=== PATIENT | male | born 1960 | race Caucasian/White ===

== ENCOUNTER 2017-05-24 18:48 | Observation (INO) | payer BC ==
[~2017-05-24] VITALS: Ht 182.9 cm; Wt 91.0 kg
[~2017-05-24 18:48] MED LIST: DICY1TAB26 PO; LORT5TAB PO; PHEN12.5 PO; PREV30CA36 PO; Z.0.NO CURRENT MEDS
[2017-05-24 18:56] VITALS: BP 153/79; PULSE 84; RESP 16; TEMP 98.4; O2SAT 99
[2017-05-24 19:04] VITALS: BP 167/80; PULSE 84; RESP 16; O2SAT 100
[2017-05-24 19:12] LABS: AUTOMATED NEUTROPHIL # 4.9 TH/MM3 (1.8-7.7); BASOPHIL # 0.1 TH/MM3 (0-0.2); BASOPHIL % 0.7 % (0.0-2.0); EOSINOPHIL # 0.1 TH/MM3 (0-0.4); EOSINOPHIL % 1.2 % (0.0-4.0); HEMATOCRIT 34.7 % (39.0-51.0); LYMPH % 29.1 % (9.0-44.0); LYMPHOCYTE # 2.3 TH/MM3 (1.0-4.8); MEAN CELL VOLUME 98.3 FL (80.0-100.0); MEAN CORPUSCULAR HEMOGLOBIN 35.6 PG (27.0-34.0); MONO % 6.3 % (0.0-8.0); NEUT % 62.7 % (16.0-70.0); PLATELET COUNT 210 TH/MM3 (150-450); RED BLOOD COUNT 3.53 MIL/MM3 (4.50-5.90); RED CELL DISTRIBUTION WIDTH 13.8 % (11.6-17.2); WHITE BLOOD COUNT 7.8 TH/MM3 (4.0-11.0)
[2017-05-24] MEDS ORDERED: NITROGLYCERIN 0.4 MG SL 25 TABS/BTL SL ONE (19:15)
--- NOTE | 2017-05-24 19:16 | PD ---
HPI Chief Complaint: Chest Pain Time Seen by Provider: 19:14 Travel History International Travel<30 days: No Contact w/Intl Traveler<30days: No Traveled to known affect area: No History of Present Illness HPI 56-year-old male presents to the emergency department by EMS transportation from home where he experienced onset of retrosternal chest burning radiating to his left shoulder. Patient experienced some associated dizziness and shortness of breath. Patient has history of hypertension. Patient denies diabetes. Patient states he drinks alcohol and smokes socially. Patient states he has had a stress test approximate 5 years ago that was done preoperatively as a routine evaluation but has never been evaluated for chest pain. Denies any ripping tearing pain and no mid scapular pain. Patient denies any referred pain to the neck or jaw. Patient states that onset pain was 9/10 in intensity currently is 5/10 in intensity. Patient received 162 mg of aspirin prior to arrival as well as 2 subungual nitroglycerin 500 cc bolus of normal saline and 2 mg of morphine. Patient has history of previous neck fracture with residual effect to the right upper extremity with tremor and some weakness as well as bilateral lower extremity weakness he states 80% function and is able to ambulate independently. Patient's had no fall or injury. Patient's had no abdominal pain. Patient's had no nausea vomiting or diarrhea. Patient's had no fever. No respiratory illness symptoms. Patient has no family history of cardiac disease. [facility] Past Medical History Narrative Medical Neck fracture 1985 with residual weakness right upper extremity and bilateral lower extremities; hypertension dyslipidemia; tobacco use alcohol use; any history negative for CAD; nursing notes reviewed Cancer: Yes (PROSTATE) Cardiovascular Problems: Yes (HTN) Diminished Hearing: No Hypertension: Yes Musculoskeletal: Yes (neck injury 1985) Tetanus Vaccination: Unknown Influenza Vaccination: No Past Surgical History Neurologic Surgery: Yes (MULTIPLE CERVICAL SURGERIES) Other Surgery: Yes (PROSTATE REMOVED) Social History Alcohol Use: Yes (socially) Tobacco Use: Yes (SOCIAL) Substance Use: No Allergies-Medications (Allergen,Severity, Reaction): Coded Allergies: Sulfa (Sulfonamide Antibiotics) (Verified Allergy, Severe, Rash, 05/24/17) Reported Meds & Prescriptions Reported Meds & Active Scripts Active Lortab 5/500 (Acetaminophen/Hydrocodone Bitart) 5 Mg/500 Mg Tab 1 Tab PO Q4- 6HPRN FOR PAIN Bentyl (Dicyclomine HCl) 20 Mg Tab 20 Mg PO Q8HPRN Phenergan (Promethazine HCl) 12.5 Mg Tab 12.5 Mg PO Q6HPRN FOR NAUSEA Prevacid (Lansoprazole) 30 Mg Capcr 30 Mg PO DAILY Reported No Current Meds (Miscellaneous Medication) Misc Review of Systems Except as stated in HPI: all other systems reviewed are Neg Physical Exam Narrative GENERAL: Well-developed well-nourished male in no acute distress no respiratory distress. SKIN: Warm and dry. HEAD: Normocephalic. EYES: No scleral icterus. No injection or drainage. NECK: Supple, trachea midline. No JVD or lymphadenopathy. CARDIOVASCULAR: Regular rate and rhythm without murmurs, gallops, or rubs. RESPIRATORY: Breath sounds equal bilaterally. No accessory muscle use. GASTROINTESTINAL: Abdomen soft, non-tender, nondistended. MUSCULOSKELETAL: No cyanosis, or edema. BACK: Nontender without obvious deformity. No CVA tenderness. Data Data Last Documented VS Vital Signs Date Time Temp Pulse Resp B/P (MAP) Pulse Ox O2 Delivery O2 Flow Rate FiO2 05/24/17 19:04 84 16 167/80 (109) 100 Nasal Cannula 2.00 05/24/17 18:56 98.4 Orders Orders Electrocardiogram (05/24/17 19:00) Complete Blood Count With Diff (05/24/17 19:00) Basic Metabolic Panel (Bmp) (05/24/17 19:00) Ckmb (Isoenzyme) Profile (05/24/17 19:00) Troponin I (05/24/17 19:00) Chest, Single Ap (05/24/17 19:00) Iv Access Insert/Monitor (05/24/17 19:00) Ecg Monitoring (05/24/17 19:00) Oxygen Administration (05/24/17 19:00) Oximetry (05/24/17 19:00) Nitroglycerin Sl (Nitrostat Sl) (05/24/17 19:15) Nitroglycerin 2% Oint (Nitroglycerin 2% (05/24/17 19:30) Sodium Chlor 0.9% 1000 Ml Inj (Ns 1000 M (05/24/17 19:30) Drug Screen, Random Urine (05/24/17 20:27) Alcohol (Ethanol) (05/24/17 19:00) Protein Corrected Calcium(Pcc) (05/24/17 19:00) Thiamine Inj (Thiamine Inj) (05/24/17 21:30) Magnesium (Mg) (05/24/17 21:18) Acetaminophen (Tylenol) (05/24/17 21:30) Labs Laboratory Tests Test 05/24/17 19:00 White Blood Count 7.8 TH/MM3 Red Blood Count 3.53 MIL/MM3 Hemoglobin 12.6 GM/DL Hematocrit 34.7 % Mean Corpuscular Volume 98.3 FL Mean Corpuscular Hemoglobin 35.6 PG Mean Corpuscular Hemoglobin Concent 36.3 % Red Cell Distribution Width 13.8 % Platelet Count 210 TH/MM3 Mean Platelet Volume 8.4 FL Neutrophils (%) (Auto) 62.7 % Lymphocytes (%) (Auto) 29.1 % Monocytes (%) (Auto) 6.3 % Eosinophils (%) (Auto) 1.2 % Basophils (%) (Auto) 0.7 % Neutrophils # (Auto) 4.9 TH/MM3 Lymphocytes # (Auto) 2.3 TH/MM3 Monocytes # (Auto) 0.5 TH/MM3 Eosinophils # (Auto) 0.1 TH/MM3 Basophils # (Auto) 0.1 TH/MM3 CBC Comment AUTO DIFF Differential Comment AUTO DIFF CONFIRMED Platelet Estimate NORMAL Platelet Morphology Comment NORMAL Blood Urea Nitrogen 19 MG/DL Creatinine 0.70 MG/DL Random Glucose 73 MG/DL Total Protein 6.2 GM/DL Calcium Level 7.6 MG/DL Sodium Level 140 MEQ/L Potassium Level 4.1 MEQ/L Chloride Level 107 MEQ/L Carbon Dioxide Level 19.8 MEQ/L Anion Gap 13 MEQ/L Estimat Glomerular Filtration Rate 116 ML/MIN Protein Corrected Calcium 8.1 MG/DL Total Creatine Kinase 60 U/L Troponin I LESS THAN 0.02 NG/ML Ethyl Alcohol Level 58 MG/DL [facility] Medical Decision Making Medical Screen Exam Complete: Yes Emergency Medical Condition: Yes Medical Record Reviewed: Yes Interpretation(s) EKG normal sinus rhythm rate 80 to no acute distress elevation injury pattern or ectopy noted Last Impressions Chest X-Ray 05/24/17 1900 Signed Impressions: Service Date/Time: May 19:22 - CONCLUSION: The lungs are clear. Trevor Fenton MD Vital Signs Date Time Temp Pulse Resp B/P (MAP) Pulse Ox O2 Delivery O2 Flow Rate FiO2 05/24/17 19:04 84 16 167/80 (109) 100 Nasal Cannula 2.00 05/24/17 19:04 100 Nasal Cannula 2.00 05/24/17 18:56 98.4 84 16 153/79 (103) 99 CBC & BMP Diagram 05/24/17 19:00 Total Protein 6.2 L, Calcium Level 7.6 L CK: 60, not elevated; troponin I less than 0.02, not elevated Serum alcohol 58, elevated Differential Diagnosis Chest pain, ACS, MO, aortic dissection, aneurysm, pneumothorax, pneumonia, PE Narrative Course Patient placed on cardiac catheterization technician with continuous pulse oximetry IV access obtained Nitropaste 1/2 inch applied to the chest wall and normal saline of 100 cc/h infused specimen collected and sent for resulting EKG performed which reveals no acute injury pattern change according to nursing notes from paramedics patient did receive 2 sublingual nitroglycerin and blood pressure went from 140 systolic to 90 systolic requiring a fluid bolus therefore as patient is now 4-5/10 in intensity will apply Nitropaste to chest wall, current systolic blood pressure 167 mmHg. At 9:20 PM patient feels clinically improved states no chest discomfort no shortness of breath no nausea does complain of headache associated with nitroglycerin. Patient administered Tylenol 650 mg; patient's alcohol is 58 administered thiamine 100 mg IV and magnesium level was added to basic labs. Patient will be admitted to chest pain center per chest pain center protocol for age 56 male with history of hypertension and dyslipidemia with development of retrosternal chest pain that resolved with nitroglycerin. Diagnosis Primary Impression: Chest pain Additional Impression: Alcohol use Anuradha Mascorro MD May 24, 2017 19:16
[2017-05-24 19:18] LABS: HEMO FLAGS AUTO DIFF; MEAN CORPUSCULAR HGB CONC 36.3 % (32.0-36.0)
[2017-05-24] MEDS ORDERED: NITROGLYCERIN 2% OINT 1 GM PACKET TOPICAL ONE (19:30)
[2017-05-24] MEDS: SODIUM CHLOR 0.9% 1000 ML INJ 1,000 ML IV SCH ×2 (19:40→21:37)
[2017-05-24 19:42] LABS: ANION GAP 13 MEQ/L (5-15); BICARBONATE 19.8 MEQ/L (21.0-32.0); BLOOD UREA NITROGEN 19 MG/DL (7-18); CHLORIDE 107 MEQ/L (98-107); CREATINE KINASE 60 U/L (39-308); GLOMERULAR FILTRATION RATE 116 ML/MIN (>89); POTASSIUM 4.1 MEQ/L (3.5-5.1); SODIUM (NA) 140 MEQ/L (136-145)
--- NOTE | 2017-05-24 19:42 | RADRPT ---
EXAM DATE/TIME: 05/24/2017 19:22 [facility] COMPARISON: No previous studies available for comparison. INDICATIONS : Chest pain. MEDICAL HISTORY : Hypercholesterolemia. Hypertension SURGICAL HISTORY : None. ENCOUNTER: Initial ACUITY: 1 day PAIN SCORE: 5/10 LOCATION: Bilateral chest FINDINGS: A single view of the chest demonstrates the lungs to be symmetrically aerated without evidence of mas s, infiltrate or effusion. The cardiomediastinal contours are unremarkable. Osseous structures are intact. CONCLUSION: The lungs are clear. Trevor Fenton MD on May 24, 2017 at 19:39 Board Certified Radiologist. This report was verified electronically.
[2017-05-24 19:57] LABS: PLATELET ESTIMATE SMEAR NORMAL (NORMAL); PLATELET MORPHOLOGY NORMAL (NORMAL); SCAN/DIFF AUTO DIFF CONFIRMED
[2017-05-24 20:53] LABS: CALCIUM-PROTEIN CORRECTED 8.1 MG/DL (8.5-10.1)
[2017-05-24 20:59] LABS: ALCOHOL 58 MG/DL (0-5)
[2017-05-24] MEDS ORDERED: THIAMINE INJ 100 MG in SODIUM CHLORIDE 0.9% INJ 100 ML IV ONE (21:30)
[2017-05-24] MEDS ORDERED: SODIUM CHLORIDE 0.9% FLUSH 10 ML FLUSH IV FLUSH PRN (21:30)
[2017-05-24] MEDS ORDERED: ACETAMINOPHEN 325 MG TAB PO ONE (21:30)
[2017-05-24 21:37] VITALS: BP 148/80; PULSE 80; RESP 16; O2SAT 98
[2017-05-24 22:11] VITALS: BP 142/80; PULSE 95; RESP 17; TEMP 98.1; O2SAT 98
[2017-05-24 22:45] VITALS: PULSE 98
[2017-05-24 23:01] LABS: CREATINE KINASE 57 U/L (39-308)
--- NOTE | 2017-05-24 23:35 | EKG ---
Date Performed: 05/24/2017 Time Performed: 19:00:01 PTAGE: 56 years EKG: Sinus rhythm NORMAL ECG PREVIOUS TRACING : 11/11/2005 17.22 Compared to prior tracing no significant change DOCTOR: Jordy Dunne Interpretating Date/Time 05/24/2017 23:34:22
[2017-05-25] VITALS (8 sets, daily range): BP systolic 124–174; BP diastolic 75–86; PULSE 74–88; RESP 14–18; TEMP 98.1–98.7; O2SAT 98–100
[2017-05-25 01:52] LABS: CREATINE KINASE 46 U/L (39-308)
[2017-05-25] MEDS ORDERED: LISINOPRIL 10 MG TAB PO ONE (08:00)
[2017-05-25] MEDS ORDERED: ACETAMINOPHEN/HYDROcodone 325 MG/5 MG TAB PO PRN (08:00)
[2017-05-25] MEDS ORDERED: KETOROLAC TROMETHAMINE 30 MG/ML (IVP) VIAL IVP ONE (08:00)
[2017-05-25] MEDS: SODIUM CHLOR 0.9% 1000 ML INJ 1,000 ML IV SCH (08:25)
--- NOTE | 2017-05-25 08:55 | HHI.HP ---
[facility] Primary Care Physician Jatin Martínez M.D. Chief Complaint Chest pain History of Present Illness This is a 56-year-old male with history of hypertension and hyperlipidemia that presents to ED via private vehicle with a complaint of developing a chest discomfort yesterday while working at home on his computer. Describes as a burning discomfort. Lasted 2 hours. Found nothing to worsen or improve it. No associated shortness of breath, nausea, or diaphoresis. States he had a stress test about 5 years ago and that it was okay. Denies recent illness. Denies fevers or chills. Patient has chronic neck pain from a stated history of a cervical spine fracture in 1985. He also has chronic right hand tremor and decreased strength in legs as well as arms more so in the right the left. Review of Systems General: Patient denies fevers, chills recent, and recent travel HEENT: Patient denies headache, sore throat, difficulty swallowing. Cardiovascular: Has the chest discomfort as mentioned above. Denies sensation of heart beating rapidly or irregularly. No syncope. Denies diaphoresis. Respiratory: Denies shortness of breath or inspirational chest discomfort. Denies coughing wheezing or hemoptysis. GI: Patient denies nausea, vomiting, diarrhea, abdominal pain, bloody stools. Musculoskeletal: Chronic neck pain. Patient denies joint pain or edema. Denies calf pain or edema. Neurovascular: Patient denies numbness, tingling, weakness in extremities. Denies headache. Endocrine: Denies polyuria and polydipsia. Hematologic: Denies easy bruising. Skin: Denies rash or itching. Past Family Social History Allergies: Coded Allergies: Sulfa (Sulfonamide Antibiotics) (Verified Allergy, Severe, Rash, 05/24/17) Past Medical History Hypertension and hyperlipidemia. Tobacco abuse. Chronic neck pain. Denies diabetes and CAD. Past Surgical History Noncontributory. Reported Medications Reported Meds & Active Scripts Active Lortab 5/500 (Acetaminophen/Hydrocodone Bitart) 5 Mg/500 Mg Tab 1 Tab PO Q4- 6HPRN FOR PAIN Bentyl (Dicyclomine HCl) 20 Mg Tab 20 Mg PO Q8HPRN Phenergan (Promethazine HCl) 12.5 Mg Tab 12.5 Mg PO Q6HPRN FOR NAUSEA Prevacid (Lansoprazole) 30 Mg Capcr 30 Mg PO DAILY Reported No Current Meds (Miscellaneous Medication) Misc Active Ordered Medications Current Medications Medications (Trade) Dose Ordered Sig/Grace Route Start Time Stop Time Status Last Admin Sodium Chloride 1,000 ml @ 100 mls/hr Q10H IV 05/24/17 19:30 05/25/17 08:25 (NS Flush) 2 ml UNSCH PRN IV FLUSH 05/24/17 21:30 (NS Flush) 2 ml BID IV FLUSH 05/25/17 09:00 05/25/17 08:24 ([place] 5-325 Mg) 1 tab Q6H PRN PO 05/25/17 08:00 (Protonix) 40 mg DAILY PO 05/25/17 09:00 05/25/17 08:23 Family History States his father had an aortic dissection at age 91. Social History Patient has been vaping 2-3 times a week for the last year but prior that he smoked one half pack of cigarettes daily for 25 years. Has on average 2-3 alcohol beverages per week. Denies illicit drugs. Physical Exam Vital Signs Vital Signs Date Time Temp Pulse Resp B/P (MAP) Pulse Ox O2 Delivery O2 Flow Rate FiO2 05/25/17 07:18 98.1 75 18 174/86 (115) 100 05/25/17 07:16 98 21 05/25/17 04:45 75 05/25/17 03:34 98.2 82 18 155/77 (103) 98 05/25/17 00:29 88 05/24/17 22:45 98 05/24/17 22:11 98.1 95 17 142/80 (100) 98 05/24/17 21:37 98 21 05/24/17 21:37 80 16 148/80 (102) 98 Room Air 05/24/17 19:04 84 16 167/80 (109) 100 Nasal Cannula 2.00 05/24/17 19:04 100 Nasal Cannula 2.00 05/24/17 18:56 98.4 84 16 153/79 (103) 99 Physical Exam GENERAL: This is a well-nourished, well-developed patient, in no apparent distress. Patient speaks in clear complete sentences. Patient is pleasant. HEENT: Head is atraumatic and normocephalic. Neck is supple without lymphadenopathy and trachea is midline. No JVD or carotid bruits. CARDIOVASCULAR: Regular rate and rhythm without murmurs, gallops, or rubs. RESPIRATORY: Clear to auscultation. Breath sounds equal bilaterally. No wheezes , rales, or rhonchi. Chest wall is nontender. No use of accessory muscles. GASTROINTESTINAL: Abdomen is nontender, nondistended. Abdomen soft. No obvious pulsatile mass or bruit. No CVA tenderness. Strong femoral pulses bilaterally. Normal bowel sounds in all quadrants. MUSCULOSKELETAL: Patient is moving upper and lower extremities freely. No calf tenderness or edema, no Homans sign. Strong pulses in upper and lower extremities. NEUROLOGICAL: Patient is alert and oriented. Cranial nerves 2-12 are grossly intact. Upper and lower extremities strength are a 4/5. Speech is clear. SKIN: No rash and turgor is normal. Laboratory Laboratory Tests Test 05/24/17 19:00 05/24/17 21:30 05/24/17 22:10 05/25/17 01:15 White Blood Count 7.8 Red Blood Count 3.53 Hemoglobin 12.6 Hematocrit 34.7 Mean Corpuscular Volume 98.3 Mean Corpuscular Hemoglobin 35.6 Mean Corpuscular Hemoglobin Concent 36.3 Red Cell Distribution Width 13.8 Platelet Count 210 Mean Platelet Volume 8.4 Neutrophils (%) (Auto) 62.7 Lymphocytes (%) (Auto) 29.1 Monocytes (%) (Auto) 6.3 Eosinophils (%) (Auto) 1.2 Basophils (%) (Auto) 0.7 Neutrophils # (Auto) 4.9 Lymphocytes # (Auto) 2.3 Monocytes # (Auto) 0.5 Eosinophils # (Auto) 0.1 Basophils # (Auto) 0.1 CBC Comment AUTO DIFF Differential Comment AUTO DIFF CONFIRMED Platelet Estimate NORMAL Platelet Morphology Comment NORMAL Blood Urea Nitrogen 19 Creatinine 0.70 Random Glucose 73 Total Protein 6.2 Calcium Level 7.6 Sodium Level 140 Potassium Level 4.1 Chloride Level 107 Carbon Dioxide Level 19.8 Anion Gap 13 Estimat Glomerular Filtration Rate 116 Protein Corrected Calcium 8.1 Total Creatine Kinase 60 57 46 Troponin I LESS THAN 0.02 LESS THAN 0.02 LESS THAN 0.02 Ethyl Alcohol Level 58 Urine Opiates Screen POS Urine Barbiturates Screen NEG Urine Amphetamines Screen NEG Urine Benzodiazepines Screen NEG Urine Cocaine Screen NEG Urine Cannabinoids Screen NEG Magnesium Level 1.7 Result Diagram: 05/24/17189905/24/171899 Imaging Last 48 hours Impressions Chest X-Ray 05/24/171899 Signed Impressions: Service Date/Time: May 19:22 - CONCLUSION: The lungs are clear. Trevor Fenton MD Course EKGs are sinus rhythm without significant ST segment depressions or elevations. Caprini VTE Risk Assessment Caprini VTE Risk Assessment: No/Low Risk (score <= 1) Caprini Risk Assessment Model Point Value = 1 Point Value = 2 Point Value = 3 Point Value = 5 Age 41-60 Minor surgery BMI > 25 kg/m2 Swollen legs Varicose veins or History of unexplained or recurrent spontaneous Oral contraceptives or hormone replacement Sepsis (< 1 month) Serious lung disease, including pneumonia (< 1 month) Abnormal pulmonary function Acute myocardial infarction Congestive heart failure (< 1 month) History of inflammatory bowel disease Medical patient at bed rest Age 61-74 Arthroscopic surgery Major open surgery (> 45 min) Laparoscopic surgery (> 45 min) Malignancy Confined to bed (> 72 hours) Immobilizing plaster cast Central venous access Age >= 75 History of VTE Family history of VTE Factor V Leiden Prothrombin [id number] Lupus anticoagulant Anticardiolipin antibodies Elevated serum homocysteine Heparin-induced thrombocytopenia Other congenital or acquired thrombophilia Stroke (< 1 month) Elective arthroplasty Hip, pelvis, or leg fracture Acute spinal cord injury (< 1 month) Prophylaxis Regimen Total Risk Factor Score Risk Level Prophylaxis Regimen 0-1 Low Early ambulation 2 Moderate Order ONE of the following: *Sequential Compression Device (SCD) *Heparin 5000 units SQ BID 3-4 Higher Order ONE of the following medications: *Heparin 5000 units SQ TID *Enoxaparin/Lovenox 40 mg SQ daily (WT < 150 kg, CrCl > 30 mL/min) *Enoxaparin/Lovenox 30 mg SQ daily (WT < 150 kg, CrCl > 10-29 mL/min) *Enoxaparin/Lovenox 30 mg SQ BID (WT < 150 kg, CrCl > 30 mL/min) AND/OR *Sequential Compression Device (SCD) 5 or more Highest Order ONE of the following medications: *Heparin 5000 units SQ TID (Preferred with Epidurals) *Enoxaparin/Lovenox 40 mg SQ daily (WT < 150 kg, CrCl > 30 mL/min) *Enoxaparin/Lovenox 30 mg SQ daily (WT < 150 kg, CrCl > 10-29 mL/min) *Enoxaparin/Lovenox 30 mg SQ BID (WT < 150 kg, CrCl > 30 mL/min) AND *Sequential Compression Device (SCD) Assessment and Plan Assessment and Plan * Chest pain: Patient has had serial cardiac enzymes and EKGs for ruling out purposes. He has been seen by Dr. Dread Odell of cardiology and the chest pain center and will undergo a Lexiscan myocardial perfusion stress test. He' ll be discharged home if the stress test was nonischemic with instructions to follow-up with PCP and return to ED for interval issues. * Hypertension: Not recall the name of medication. We will use lisinopril while he is here and he should resume his medication at discharge. * Hyperlipidemia: Cannot recall the name of medication he takes. He is on a statin. He should resume that at discharge. * Tobacco abuse: Patient has been counseled on importance of smoking cessation. Patient is stable this time. He is agreeable to this plan. Myles Kincaid May 25, 2017 08:55
[2017-05-25] MEDS ORDERED: PANTOPRAZOLE SOD 40 MG DELAYED RELEASE TAB PO SCH (09:00)
[2017-05-25] MEDS ORDERED: SODIUM CHLORIDE 0.9% FLUSH 10 ML FLUSH IV FLUSH SCH (09:00)
[2017-05-25] MEDS ORDERED: REGADENOSON INJ 0.4 MG/5 ML SYR ONE (09:38)
[2017-05-25] MEDS ORDERED: AMINOPHYLLINE INJ 500 MG/20 ML VIAL ONE (10:11)
--- NOTE | 2017-05-25 10:58 | RADRPT ---
EXAM DATE/TIME: 05/25/2017 09:29 [facility] COMPARISON: No previous studies available for comparison. INDICATIONS : Retrosternal chest pain. Angina. DOSE: 25.6 mCi Tc99m Myoview at stress. 8.11 mCi Tc99m Myoview at rest. 0.4 mg Lexiscan STRESS SYMPTOMS: Shortness of breath, chest pressure. EJECTION FRACTION: > 70% MEDICAL HISTORY : Carcinoma, prostate. SURGICAL HISTORY : Prostatectomy. ENCOUNTER: Initial ACUITY: 1 day PAIN SCALE: 9/10 LOCATION: Retrosternal chest TECHNIQUE: The patient underwent pharmacologic stress with infusion of prescribed dose. Continuous ECG tracing was monitored during stress. Gated SPECT imaging was performed after stress and conventional SPECT i maging was performed at rest. The examination was performed on a SPECT/CT scanner, both attenuation and non-corrected datasets were reviewed. FINDINGS: DISTRIBUTION: The maximum perfused segment at stress is in the septal wall. PERFUSION STUDY: The pattern of perfusion at stress is within normal limits. GATED STUDY: There is intact wall motion and thickening without hypokinetic or dyskinetic segments. CONCLUSION: 1. No stress-induced perfusion defect. 2. No focal wall motion abnormality. Normal ejection fraction. RISK CATEGORY: Low (<1% Annual Mortality Rate) Den Jessica MD on May 25, 2017 at 10:49 Board Certified Radiologist. This report was verified electronically.
[2017-05-25] MEDS ORDERED: [UNRECOGNIZED DRUG - REMARK] (11:39)
[2017-05-25] MEDS ORDERED: [UNRECOGNIZED DRUG - REMARK] (11:40)
--- NOTE | 2017-05-25 11:46 | HHI.DCPOC ---
Discharge Care Plan Diagnosis: (1) Chest pain (2) Hypertension (3) Hyperlipidemia (4) Tobacco abuse Goals to Promote Your Health * To prevent worsening of your condition and complications * To maintain your health at the optimal level Directions to Meet Your Goals Take your medications as prescribed Follow your dietary instruction Follow activity as directed Keep your appointments as scheduled Take your immunizations and boosters as scheduled If your symptoms worsen call your PCP, if no PCP go to Urgent Care Center or Emergency Room Smoking is Dangerous to Your Health. Avoid second hand smoke Call the 24-hour hour crisis hotline for domestic abuse at Myles Kincaid May 25, 2017 11:46
--- NOTE | 2017-05-25 14:21 | EKG ---
Date Performed: 05/24/2017 Time Performed: 22:17:11 PTAGE: 56 years EKG: Sinus rhythm MARKED LEFT AXIS DEVIATION ABNORMAL ECG PREVIOUS TRACING : 05/24/2017 19.00 Since previous tracing, no significant change noted DOCTOR: Dread Odell Interpretating Date/Time 05/25/2017 14:19:26
--- NOTE | 2017-05-25 14:21 | EKG ---
Date Performed: 05/25/2017 Time Performed: 01:02:20 PTAGE: 56 years EKG: Sinus rhythm MARKED LEFT AXIS DEVIATION ABNORMAL ECG PREVIOUS TRACING : 05/24/2017 22.17 Since previous tracing, no significant change noted DOCTOR: Dread Odell Interpretating Date/Time 05/25/2017 14:19:10
--- NOTE | 2017-05-25 14:25 | TR ---
Date Performed: 05/25/2017 Time Performed: 09:55:57 DOCTOR: Dread Odell DRUG LIST: CLINICAL HISTORY: REASON FOR TEST: Angina REASON FOR ENDING: OBSERVATION: CONCLUSION: Lexiscan stress test was performed under standard four minute protocol. Radionuclid e was injected one minute prior to ending the test. No electrocardiographic abormalities were present to suggest ischemia. Nuclear imaging and interpretation are pending. COMMENTS:
== END 2017-05-25 16:50 | disposition home or self-care (01) ==
LOC: NEPC 18:48 → NEDA 21:24 → NEPHCDU 21:51
DX: R07.89 Other chest pain (principal); R25.1 Tremor, unspecified; R94.31 Abnormal electrocardiogram [ECG] [EKG]; R53.1 Weakness; R06.02 Shortness of breath; R42 Dizziness and giddiness; I20.9 Angina pectoris, unspecified; I10 Essential (primary) hypertension; E78.5 Hyperlipidemia, unspecified; M54.2 Cervicalgia; G89.29 Other chronic pain; F17.200 Nicotine dependence, unspecified, uncomplicated; Z85.46 Personal history of malignant neoplasm of prostate
CPT/HCPCS: 71010; 78452; 80048; 80307; 82550; 83735; 84155; 84484; 85025; 93005; 93017; 96361; 96374; 96376; 99285; A9502; G0378; J0280; J1885; J2785; J3411; J7030